=== PATIENT | male | born 1970 | race Caucasian/White ===

== ENCOUNTER → 2019-07-25 09:54 | Outpatient (CLI) | payer OTHER, SELFPAY ==
[2019-07-25 10:59] LABS: Alanine Aminotransferase 46 IU/L (<50); Albumin 4.8 g/dL (3.5-5.0); Albumin Globulin Ratio 1.4 (1.0-2.8); Alkaline Phosphatase 86 U/L (38-126); Aspartate Aminotransferase 38 IU/L (17-59); Blood Urea Nitrogen 16 mg/dL (9-20); Calcium 9.6 mg/dL (8.4-10.2); Carbon Dioxide 26 mmol/L (22-32); Chloride 100 mmol/L (98-107); Cholesterol 172 mg/dL (140-199); Estimated Glomerular Filt Rate > 60.0 mL/min (>60); Globulin 3.5 g/dL (1.7-4.1); Glucose 115 mg/dL (70-100); HDL Cholesterol 38 mg/dL (40-60); HEMOLYSIS < 15 (0-50); LDL Cholesterol Calculated 108 mg/dL (<100); Potassium 4.7 mmol/L (3.4-5.1); Sodium 138 mmol/L (137-145); Total Protein 8.3 g/dL (6.3-8.2); Triglycerides 129 mg/dL (35-150)
== END ==
PROVIDERS: PCP Internal Medicine; Visit Provider Internal Medicine
DX: I10 Essential (primary) hypertension (principal); E78.5 Hyperlipidemia, unspecified
CPT/HCPCS: 36415; 80053; 80061

== ENCOUNTER → 2019-08-08 12:03 | Outpatient (CLI) | payer OTHER, SELFPAY ==
[2019-08-08 13:36] LABS: Hemoglobin A1C% w Est Avg Glu 5.2 % (4.0-6.0)
== END ==
PROVIDERS: PCP Internal Medicine; Visit Provider Internal Medicine
DX: R73.9 Hyperglycemia, unspecified (principal)
CPT/HCPCS: 36415; 83036

== ENCOUNTER 2022-03-09 18:59 | Emergency (ER) | payer OTHER, SELFPAY ==
[2022-03-09 19:12] VITALS: BP 104/55; PULSE 78; RESP 16; TEMP 36.2; O2SAT 95; BMI 31.2
[2022-03-09] MEDS: LIDOCAINE/PRILOCAINE 5 GM TOP (20:27)
[2022-03-09] MEDS: BACITRACIN OINT 0.9 GM PCKT 5 APPLIC TOP (20:27)
[2022-03-09] MEDS: IBUPROFEN 400 MG TABLET PO (20:28)
[2022-03-09] MEDS: cephALEXin 250 MG CAPSULE 500 MG PO (20:28)
[2022-03-09] MEDS: ONDANSETRON 4 MG ODT SL (20:28)
[2022-03-09] MEDS: OXYCODONE/ACETAMINOPHEN 5/325 TABLET 1 TAB PO (20:28)
[2022-03-09] MEDS: TET,DIPH,PERTUSS(ACELL),VAC/PF 0.5 ML SYRINGE IM (20:29)
[2022-03-09] MEDS: LIDOCAINE 1% 20 ML INJ (22:47)
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
[2022-03-09] MEDS: OXYCODONE/APAP 5/325 PREPACK 1 BOTTLE MISC (23:17)
[2022-03-09 23:19] VITALS: BP 124/69; PULSE 80; RESP 16; O2SAT 94
== END 2022-03-09 23:28 | disposition home or self-care (01) ==
PROVIDERS: Emergency Provider Emergency Medicine; PCP Internal Medicine
DX: S81.012A Laceration without foreign body, left knee, initial encounter (principal); W22.8XXA Striking against or struck by other objects, initial encounter; Z23 Encounter for immunization
CPT/HCPCS: 13121; 13122; 90471; 93005; 99284; 90715